=== PATIENT | male | born 1975 | race Caucasian/White ===

== ENCOUNTER 2017-02-25 06:55 | Day surgery (SDC) | payer MEDICAID ==
[~2017-02-25 06:55] MED LIST: AMLODIPINE BESY10 M1 PO; BOOST237 ML PO; COREG6.25 M1 PO; HM DOUBLE ANT28.4 GM TP; HUMALOG100 UNITS/ SC; HYDROCODONE; LANTUS100 UNITS/ SC; LEVEMIR100 UNITS/ SC; LISINOPRIL40 M1 PO; NEPHROCAPS SOFTG1 M1 PO; PROTONIX40 M2 PO; RENAGEL PO; SENSIPAR30 M1 PO; SEROQUEL XR400 M2 PO; SIMVASTATIN20 M1 PO; SYNTHROID125 MC1 PO; TORSEMIDE100 M1 PO; TRIAMCINOLONE A15 G2 TP; TYLENOL EXTRA500 M1 PO; ULTRAM50 M1 PO
== END 2017-02-25 12:00 ==
LOC: SHSC 06:55
PROC: B51WYZZ Fluoroscopy of Dialysis Shunt/Fistula using Other Contrast (ICD-10-PCS; principal; 2017-02-25)
PROC: 057F3ZZ Dilation of Left Cephalic Vein, Percutaneous Approach (ICD-10-PCS; 2017-02-25)
DX: T82.858A Stenosis of other vascular prosthetic devices, implants and grafts, initial encounter (principal); E11.22 Type 2 diabetes mellitus with diabetic chronic kidney disease; N18.6 End stage renal disease; Z79.4 Long term (current) use of insulin; Z79.899 Other long term (current) drug therapy; Z88.8 Allergy status to other drugs, medicaments and biological substances; Z91.048 Other nonmedicinal substance allergy status; Z98.890 Other specified postprocedural states; Z99.2 Dependence on renal dialysis
CPT/HCPCS: C1725; C1769; J1815; J2250; J3010; Q9967